=== PATIENT | male | born 1965 | race Caucasian/White ===

== ENCOUNTER 2019-04-22 13:48 | Emergency (ER) | payer SELFPAY ==
[~2019-04-22] VITALS: Ht 188 cm; Wt 90.9 kg
[2019-04-22] MEDS ORDERED: ZIPRASIDONE 20 MG INJ IM ONE ×2 (14:00)
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
[2019-04-22 14:20] LABS: BASOPHILS # (AUTO) 0.03 x10^3/uL (0-0.1); BASOPHILS % (AUTO) 0 % (0-1); EOSINOPHILS # (AUTO) 0.06 x10^3/uL (0-0.4); EOSINOPHILS % (AUTO) 1 % (1-7); LYMPHOCYTES % (AUTO) 19 % (22-44); MD NO; MEAN CORPUSCULAR HEMOGLOBIN 30.1 pg (27.5-34.5); MEAN CORPUSCULAR HGB CONC 33.2 g/dL (33.2-36.2); MEAN CORPUSCULAR VOLUME 90.6 fL (81-97); MEAN PLATELET VOLUME 7.5 fL (7.4-10.4); MONOCYTES # (AUTO) 0.82 x10^3/uL (0.2-0.8); MONOCYTES % (AUTO) 10 % (2-9); NEUTROPHILS # (AUTO) 5.48 x10^3/uL (1.8-6.8); NEUTROPHILS % (AUTO) 70 % (42-75); PLATELET COUNT 307 x10^3/uL (130-400); RED BLOOD COUNT 4.53 x10^6/uL (4.38-5.82); RED CELL DISTRIBUTION WIDTH 14.4 % (9.4-14.8)
[2019-04-22 14:24] VITALS: BP 106/72
[2019-04-22 14:28] LABS: ALANINE AMINOTRANSFERASE 20 U/L (12-78); ALBUMIN 3.7 g/dL (3.4-5.0); ANION GAP 7 mmol/L (5-15); CALCIUM 8.7 mg/dL (8.5-10.1); CHLORIDE 109 mmol/L (98-107); CREATININE 1.07 mg/dL (0.7-1.3); SALICYLATE LEVEL 1.8 mg/dL (2.8-20.0)
[2019-04-22 14:30] LABS: ALKALINE PHOSPHATASE 67 U/L (45-117); BILIRUBIN,TOTAL 0.4 mg/dL (0.2-1.0); TOTAL PROTEIN 6.7 g/dL (6.4-8.2)
== END 2019-04-22 15:45 | disposition home or self-care (01) ==
LOC: ED 14:51
DX: S93.401A Sprain of unspecified ligament of right ankle, initial encounter (principal); R45.1 Restlessness and agitation; F17.200 Nicotine dependence, unspecified, uncomplicated; Z88.0 Allergy status to penicillin; X58.XXXA Exposure to other specified factors, initial encounter; Y93.89 Activity, other specified; Y92.89 Other specified places as the place of occurrence of the external cause; Y99.8 Other external cause status
CPT/HCPCS: 36415; 73610; 80053; 80307; 85025; 86705; 86706; 86803; 87340; 87806; 96372; 99284; J3486; G0475

== ENCOUNTER 2019-09-25 00:06 | Emergency (ER) | payer OTHER ==
[~2019-09-25] VITALS: Ht 180.3 cm; Wt 80.0 kg
[2019-09-25 00:18] VITALS: BP 148/83
--- NOTE | 2019-09-25 00:19 | NUR ---
Pt presents to ed c/o bilateral hand numbnessxmonths. 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 Gross neuro intact. "i just got out of [facility] and i didnt know where to go.... I cant walk well. My knees go bouncy and buckle back and forth." Pt amb w/ steady gait w/ help from ems. Monitoring applied. Vss. Call light within reach.
[2019-09-25] MEDS ORDERED: IBUPROFEN 800 MG TABLET PO STA (01:08)
[2019-09-25] MEDS ORDERED: IBUPROFEN 800 MG TABLET ONE (01:11)
== END 2019-09-25 01:30 ==
LOC: ED 01:24
DX: R20.2 Paresthesia of skin (principal); M54.5 Low back pain; G89.29 Other chronic pain; Z59.0 Homelessness
CPT/HCPCS: 99283

== ENCOUNTER 2019-09-30 15:04 | Emergency (ER) | payer SELFPAY ==
[~2019-09-30] VITALS: Ht 180.3 cm; Wt 98.0 kg
[2019-09-30] MEDS ORDERED: ARIP5TAB13 PO (15:16)
[2019-09-30] MEDS ORDERED: BUSP5TAB2 PO (15:16)
--- NOTE | 2019-09-30 15:26 | NUR ---
Pt PIYUSH Rajput. Was at social director, sts "I can't take care of myself". Pt w/ multiple complaints: "I can't feel my hands or used them" x6 months since handcuffed by police. "Can I be admitted for 3 days, I don't want to go to the alf and it's going to snow". C/o back/neck/leg pain. Sts cannot take own shoes off. scab on inner L ankle, foot is red,warm,swollen. +DP. Equal hide splitter. A&Ox4 GCS 15. Poor historian. denies etoh/drug use. C/o 08/14 generalized pain. Asking for food/cookies. Both ankles swollen, sts cannot walk well. Dr. Whitfield at bedside for eval. plan for xrays. call ritchie in reach, given blanket, side rails x2. VSS. CTM.
--- NOTE | 2019-09-30 16:30 | NUR ---
Pt resting in bed appears to be sleeping. awaiting dispo.
--- NOTE | 2019-09-30 16:36 | NUR ---
pt restign in bed, appears to be sleeping. xr shows deg disk disease no fx.
--- NOTE | 2019-09-30 17:03 | NUR ---
Pt to be d/c home. Pt asking for vicodin. 05/14 mid back pain. will notify
[2019-09-30 17:05] VITALS: BP 113/62
[2019-09-30] MEDS ORDERED: IBUPROFEN 600 MG TABLET ONE (17:25)
[2019-09-30] MEDS ORDERED: IBUPROFEN 600 MG TABLET PO ONE (17:30)
== END 2019-09-30 17:46 | disposition home or self-care (01) ==
LOC: ED 17:40
DX: R20.0 Anesthesia of skin (principal); M54.5 Low back pain; M54.16 Radiculopathy, lumbar region; M51.36 Other intervertebral disc degeneration, lumbar region
CPT/HCPCS: 72050; 72110; 99283